=== PATIENT | male | born 1990 | race African-American/Black ===

== ENCOUNTER 2025-04-09 13:25 | Outpatient (CLI) | payer OTHER, SELFPAY ==
--- NOTE | 2025-04-09 13:39 | USCV_ITS ---
Devonte Worrell Age: 34 Gender: M : 1990 Exam Date: 04/09/2025 13:51 Ordering Phys: Delfin Shannon PERSONAL LINES APPRAISER- BC Technologist: Exam Location: [facility] – [place] Indication: screening BP: / HR: 74 Rhythm: Sinus Technical Quality: Adequate MEASUREMENTS (Male / Female) Normal Values 2D ECHO LV Diastolic Diameter PLAX 4.6 cm 4.2 - 5.9 / 3.9 - 5.3 cm IVS Diastolic Thickness 1.3 cm 0.6 - 1.0 / 0.6 - 0.9 cm IVS Systolic Thickness 1.8 cm LVPW Diastolic Thickness 1.3 cm 0.6 - 1.0 / 0.6 - 0.9 cm LVPW Systolic Thickness 1.8 cm LVOT Diameter 2.0 cm LV Ejection Fraction 2D Teich 65.7 % LV Ejection Fraction MOD 4C 69.5 % LV Ejection Fraction MOD 2C 74.0 % LV Ejection Fraction 2C AL 73.2 % LA Diameter 3.4 cm RA Systolic Volume 4C AL 42.3 ml RA Systolic Volume 4C MOD 40.5 ml LA Sys Volume AL 39.6 cm cubed LA Sys Volume Index AL 16.3 cm cubed/m squared IVC Diameter 2.0 cm M-MODE LA Ao Ratio MM 1.3 AV Cusp Separation MM 2.3 cm DOPPLER AV Peak Velocity 146.0 cm/s LVOT Peak Velocity 118.0 cm/s AV Area Cont Eq vti 3.0 cm squared AV Area Cont Eq pk 2.6 cm squared MV Area PHT 3.8 cm squared TV Peak Velocity 178.0 cm/s TR Peak Velocity 181.0 cm/s TR Peak Gradient 13.1 mmHg TV Peak E Velocity 115.0 cm/s FINDINGS Left Ventricle Normal left ventricular size, systolic function and wall thickness, with no regional wall motion abnormalities. Left ventricular ejection fraction is estimated at 60 %. Normal diastolic function. Right Ventricle The right ventricle is normal in size and function. Right Atrium The right atrium is normal in size. Left Atrium The left atrium is normal in size. Mitral Valve Structurally normal mitral valve without significant stenosis or prolapse. There is no mitral regurgitation. Aortic Valve Structurally normal aortic valve without significant sclerosis or stenosis. There is no aortic regurgitation. Tricuspid Valve Structurally normal tricuspid valve without significant stenosis or regurgitation. Pulmonary artery systolic pressure is normal. Pulmonic Valve Trace pulmonary valve regurgitation. Pericardium Normal pericardium without effusion. Aorta Normal ascending aorta dimension. IVC The inferior vena cava appears normal. CONCLUSIONS Normal left ventricular size, systolic function and wall thickness, with no regional wall motion abnormalities. Left ventricular ejection fraction is estimated at 60 %. Normal diastolic function. No significant valve abnormalities. There is no pericardial effusion. Right atrial pressure is around 5 mm of mercury. Cleve Alcantara MD (Electronically Signed) Final Date: 11 April 2025 20:14 S
== END 2025-04-09 13:26 | disposition home or self-care (01) ==
LOC: RAD 13:28
DX: R07.9 Chest pain, unspecified (principal)
CPT/HCPCS: 93306